=== PATIENT | female | born 1970 | race African-American/Black ===

== ENCOUNTER 2018-03-15 16:10 | Outpatient (CLI) | payer BC | END 2018-03-15 16:11 | disposition home or self-care (01) | LOC: BICMAMMO 16:10 | PROVIDERS: ATTEND Family Medicine | DX: Z12.31 Encounter for screening mammogram for malignant neoplasm of breast (principal); Z80.3 Family history of malignant neoplasm of breast | CPT/HCPCS: 77063; 77067 ==

== ENCOUNTER 2021-03-14 15:24 | Outpatient (CLI) | payer BC | END 2021-03-14 15:25 | disposition home or self-care (01) | LOC: BICMAMMO 15:24 | PROVIDERS: ATTEND Family Medicine | DX: Z12.31 Encounter for screening mammogram for malignant neoplasm of breast (principal); Z80.3 Family history of malignant neoplasm of breast | CPT/HCPCS: 77063; 77067 ==

== ENCOUNTER 2022-09-03 15:32 | Outpatient (CLI) | payer BC | END 2022-09-03 15:33 | disposition home or self-care (01) | LOC: BICRAD 15:32 | PROVIDERS: ATTEND Family Medicine | DX: R06.02 Shortness of breath (principal) | CPT/HCPCS: 71046 ==

== ENCOUNTER 2023-09-10 06:44 | Day surgery (SDC) | payer BC ==
[2023-09-09 14:00] VITALS: BMI 50.8
[2023-09-10] MEDS ORDERED: Midazolam HCl 2 mg/2 ml Vial ONE (07:54)
[2023-09-10] MEDS ORDERED: PROPOFOL 200 MG/20 ML VIAL ONE (08:42)
[2023-09-10] MEDS ORDERED: Lidocaine 1% PF 5 ML VIAL ONE (08:42)
== END 2023-09-10 10:01 | disposition home or self-care (01) ==
LOC: SDC 06:44
PROVIDERS: ATTEND Internal Medicine
PROC: 0DBM8ZZ Excision of Descending Colon, Via Natural or Artificial Opening Endoscopic (ICD-10-PCS; principal; 2023-09-10)
DX: K63.5 Polyp of colon (principal); K64.8 Other hemorrhoids; K57.30 Diverticulosis of large intestine without perforation or abscess without bleeding; J45.909 Unspecified asthma, uncomplicated; I10 Essential (primary) hypertension; E78.5 Hyperlipidemia, unspecified; E66.9 Obesity, unspecified; Z68.43 Body mass index [BMI] 50.0-59.9, adult; Z90.710 Acquired absence of both cervix and uterus; Z79.4 Long term (current) use of insulin; Z79.84 Long term (current) use of oral hypoglycemic drugs; Z79.85 Long-term (current) use of injectable non-insulin antidiabetic drugs; Z79.899 Other long term (current) drug therapy
CPT/HCPCS: 36416; 88305; J2250; J2704